=== PATIENT | male | born 1955 | race Caucasian/White ===

== ENCOUNTER 2024-05-11 05:01 | Observation (INO) ==
--- NOTE | 2024-03-29 08:49 | PAT Medication Instructions ---
Medication Instructions Date of Service March 29, 2024 Home Medications lisinopril 10 mg tablet 10 mg PO QPM Take evening before surgery lisinopril 10 mg tablet 10 mg PO QPM Other Notes NOTHING TO EAT OR DRINK AFTER MIDNIGHT. If you have any questions please call us at [phone] or [phone] or [phone] or [phone]
--- NOTE | 2024-04-05 11:53 | Anesthesiology Consultation ---
Date of Service April 05, 2024 Assessment & Plan (1) Encounter for pre-operative examination: - will request 12/[address] [facility] and most recent PCP office note. Chart Review Chart Review: Pending: Refer to Additional Notes / Consult section and Patient seen in Pre Admission Testing Teaching & Discussion Pre-Anesthesia Teaching/Discussion Notes: Instructed NPO after midnight before surgery, except medications with 15 cc of water. Medication instructions provided according to the PAT guidelines. History Surgery Operation Date: 05/11/24 08:00 Proposed Procedures p Left Anterior Total Hip Arthroplasty - Allan Palma DO Height/Weight Height: 5 ft 10 in Weight: 112.1 kg Allergies Allergy/AdvReac Type Severity Reaction Status Date / Time No Known Allergies Allergy Unverified 03/28/24 14:56 Medications Home Medications Medication Instructions Recorded Confirmed Last Taken lisinopril 10 mg tablet 10 mg PO QPM 03/28/24 03/28/24 Unknown ascorbic acid (vitamin C) 250 mg 250 mg PO QPM 04/05/24 04/05/24 Unknown tablet cholecalciferol (vitamin D3) 50 50 mcg PO QPM 04/05/24 04/05/24 Unknown mcg (2,000 unit) capsule (Vitamin D3) magnesium 100 mg tablet mg PO QPM 04/05/24 Unknown zinc 15 mg tablet 15 mg PO QPM 04/05/24 04/05/24 Unknown Additional Notes: Patient was instructed can continue supplements the evening before surgery, but cannot be taken the morning of surgery. This was also written on provided medication instructions. He verbalized understanding and agreement, denied questions, concerns or additional supplements/medications. Past Medical History Medical History (Updated 04/05/24 @ 12:21 by Neida Oakes PA-C) History of kidney stones History of prostate cancer (2003) prostatectomy, chemo and radiation Hypertension controlled, stable per pt Osteoarthritis Patient denies h/o stroke, seizures, heart attack, heart failure, DM, blood clots/DVTs or blood transfusions. Exercise / Class Metabolic Activity III < 4 Walking/Shop/Light housework (denies chest discomfort or shortness of breath with usual activities) Past Surgical History Surgical History History of amputation of finger of right hand History of prostatectomy History of repair of left rotator cuff Past Anesthesia History No Hx of Anesthesia Complications and No Family Hx of Anesthesia Complications History of PONV No Hx of PONV and No Hx of Motion Sickness Social History Smoking Status: Never smoker Do You Dip or Chew Tobacco: Yes (-advised) Hx Alcohol Use: No Hx Substance Use: No substance use type: does not use Review of Systems Snoring, denies witnessed apneas. Patient denies chest pain, shortness of breath, dyspnea on exertion, reflux, fever, chills, cough, wheezing, or palpitations. Physical Exam Vital Signs Vitals BP 113/68 P 60 TEMP 97.8 SP02 98% on RA RESP 18 Physical Patient resting comfortably in chair in no acute distress, alert and oriented, responding appropriately throughout visit Full cervical extension range of motion without pain TMD 3.5 finger breadths Mallampati Score 2 Dentition: front upper partial, denies chipped or loose teeth, caps/crowns, implants or bridges Lungs: normal respiratory effort. Good air movement, clear throughout to auscultation, no adventitious breath sounds Cardiac: regular rate and rhythm, no murmurs noted Carotid arteries: negative bruit bilat Lab Results Anesthesia Preop Results Results Anesthesia Widget: WBC 8.01 K/ul (4.8-10.8) 04/05/24 Hgb 14.5 g/dl (14.0-18.0) 04/05/24 Hct 44.2 % (42.0-52.0) 04/05/24 Plt 187 K/uL (130-400) 04/05/24 Na 142 mmol/L (136-145) 04/05/24 K 4.0 mmol/L (3.5-5.1) 04/05/24 Cl 107 mmol/L (98-107) 04/05/24 CO2 30 mmol/L (21-32) 04/05/24 BUN 19 mg/dl (6-23) 04/05/24 Creat 1.07 mg/dl (0.6-1.4) 04/05/24 Glucose Level 91 mg/dl (70-99(Fasting)) 04/05/24 PT 10.4 Seconds (9.0-12.0) 04/05/24 PTT 27 Seconds (21-31) 04/05/24 INR 1.0 (0.9-1.1) 04/05/24 Blood Type O Positive 04/05/24 Antibody Screen NEGATIVE 04/05/24 Testing Electrocardiogram Date: 04/05/24 Sinus bradycardia, rate 59 bpm Chest X-Ray Date: 04/05/24 No acute chest disease.
--- NOTE | 2024-05-09 07:44 | History & Physical Report ---
Date of Service May 09, 2024 Assessment & Plan (1) Osteoarthritis of left hip: We will proceed with a left anterior total of arthroplasty. Postoperatively he will be started on aspirin for DVT prophylaxis and kept overnight in the hospital for postop medical management. He plans to have the hospital set up home health for discharge. History of Present Illness Chief Complaint: Osteoarthritis of the left hip. Primary Care Provider: Santana Ozuna is a pleasant 68-year-old male who has been dealing with chronic increasing left hip and groin pain. X-rays and clinical examination have been diagnostic for advanced arthritis of the left hip. He has had injections of his hip, which initially were providing relief, but are no longer helping. MRI of the left hip confirms advanced arthritis. After failing conservative treatment, he has elected proceed with a left anterior total of arthroplasty. Allergies Allergy/AdvReac Type Severity Reaction Status Date / Time No Known Allergies Allergy Unverified 03/28/24 14:56 Home Medications Medication Instructions Recorded Confirmed Type lisinopril 10 mg tablet 10 mg PO QPM 03/28/24 03/28/24 History ascorbic acid (vitamin C) 250 mg 250 mg PO QPM 04/05/24 04/05/24 History tablet cholecalciferol (vitamin D3) 50 50 mcg PO QPM 04/05/24 04/05/24 History mcg (2,000 unit) capsule (Vitamin D3) magnesium 100 mg tablet mg PO QPM 04/05/24 History zinc 15 mg tablet 15 mg PO QPM 04/05/24 04/05/24 History Past Med/Surg History Problem List Osteoarthritis of left hip Osteoarthritis of right hip Greater trochanteric bursitis of right hip Carpal tunnel syndrome of left wrist Medical History Osteoarthritis History of kidney stones History of prostate cancer (2003) prostatectomy, chemo and radiation Hypertension controlled, stable per pt Surgical History History of amputation of finger of right hand History of repair of left rotator cuff History of prostatectomy Social History Smoking Status: Never smoker Tobacco Type: Smokeless Tobacco (Dip or Chew) Second Hand Exposure: No; Do You Dip or Chew Tobacco: Yes (-advised); Tobacco Cessation Education Requested by Patient: No Hx Alcohol Use: No Hx Substance Use: No Preferred Language: Turkmen Pet Walker Required: No Beliefs That Will Affect Care: None Current Living Situation: Spouse Other Information That Helps Us Care for You: No Feels Safe at Home: Yes Safety Concerns: Feels Safe At This Time Assistive Devices: Denture - Upper Review of Systems All systems reviewed & are unremarkable except as noted in HPI & below. Physical Exam On physical exam of the left hip, he has decreased range of motion. He has pain with internal/external rotation. All of his pain is located in the groin.. Constitutional WD/WN, vitals as above Eyes PERRL, conjunctivae normal, anicteric sclerae ENMT external ear and nose normal, oropharynx normal Neck trachea midline, no thyromegaly Respiratory normal respiratory effort Cardiovascular RRR, no murmur, no edema Gastrointestinal (Abdomen) normal bowel sounds, soft, nontender, no hepatosplenomegaly Psychiatric A+Ox3, euthymic affect Results & Data Results & Data Laboratory Results . Diagnostic Findings X-rays of the left hip show advanced osteoarthritis with joint space narrowing, osteophyte formation, and [id number] articulation. PG Care Time/CCT Total # of Minutes Spent Total Time Spent with Patient: Total time spent is greater than 50% in coordination of care (as documented) at patient's floor/unit and/or counseling patient: Coding Level of Care Code None Diagnoses Osteoarthritis of left hip M16.12
[2024-05-11] MEDS: LR 60ML/HR IV SCH (05:33)
[2024-05-11] MEDS: FAMOTIDINE 20 MG TAB PO SCH (05:42)
[2024-05-11] MEDS: GABAPENTIN 300 MG CAP PO SCH (05:42)
[2024-05-11] MEDS: ACETAMINOPHEN 500 MG TAB PO SCH ×2 (05:42→14:33)
[2024-05-11] MEDS: LR 15ML/HR IV SCH (05:42)
[2024-05-11] MEDS: dexAMETHasone**PF** 10 MG/ML VIAL IV SCH (05:43)
--- NOTE | 2024-05-11 06:16 | History & Physical Bridge Note ---
Date of Service May 11, 2024 History & Physical Bridge Note I have examined the patient, reviewed the History & Physical and in the interval since the performance of the History & Physical I have noted the following changes of clinical significance: no changes noted
[2024-05-11] MEDS ORDERED: BUPIVACAINE 0.5 % 5 MG/1 ML PF 10ML VIAL ONE (06:17)
[2024-05-11] MEDS: TRANEXAMIC ACID 1,000 MG **IV Pre-op IV SCH (06:46)
[2024-05-11] MEDS ORDERED: MIDAZOLAM HCL 1 MG/ML 2ML VIAL ONE (06:47)
[2024-05-11] MEDS ORDERED: HYDROmorphone INJ 1 MG/ML SYRINGE IV PRN (07:10)
[2024-05-11] MEDS ORDERED: ONDANSETRON INJ 2 MG/ML 2 ML VIAL IV PRN ×2 (07:10→11:16)
[2024-05-11] MEDS: ceFAZolin 2000MG 2,000 MG/15 ML SYR IV SCH ×2 (07:10→14:34)
[2024-05-11] MEDS ORDERED: ePHEDrine sulfate 50 MG/ML AMP IV PRN (07:10)
[2024-05-11] MEDS ORDERED: PROMETHAZINE HCL 6.25 MG in SODIUM CHLORIDE 0.9% 50 ML IV PRN (07:10)
[2024-05-11] MEDS ORDERED: fentaNYL citrate PF 100 MCG/2 ML VIAL IV PRN (07:10)
[2024-05-11] MEDS ORDERED: ATROPINE SULFATE 0.1 MG/ML 10ML SYR IV PRN (07:10)
[2024-05-11] MEDS ORDERED: GLYCOPYRROLATE 0.2 MG/ML VIAL ONE (07:36)
[2024-05-11] MEDS: ORTHO JOINT ANESTHETIC ONE (07:49)
[2024-05-11] MEDS ORDERED: PROPOFOL IV EMULSION 10 MG/ML 20 ML VIAL IV ONE (07:52)
[2024-05-11] MEDS: ROPIV 0.5% 246mg, Ketorolac 30mg, EPINEPHrine 0.5mg in NSS INFIL SCH (08:02)
--- NOTE | 2024-05-11 08:08 | Operative Report ---
PG Post Operative Report Pre & Post Diagnosis Operation Date: 05/11/24 07:00 Pre-Op Diagnosis: Osteoarthritis of left hip Post-Op Diagnosis: Osteoarthritis of left hip I identified the patient and participated in the time-out.: Yes Procedure Operation Date: 05/11/24 07:00 Actual Procedures p Left Anterior Total Hip Arthroplasty(Left) - Allan Palma DO Surgeon Allan Palma DO Supervisor [employer] Lino Aguilar PA-C Estimated Blood Loss 250 Findings Consistent with Post-Op Diagnosis Specimens Left femoral head Description of Procedure Implants used I used a ZimmerBiomet total hip arthroplasty system with a size 4 standard offset Avenir Complete stem, a 54 mm G7 cup with a 25mm screw, an E1 polyethylene liner, a 40 mm ceramic head with a 0 neck. Laith arrived at the hospital for the above procedure. He was seen in the preoperative holding area and the operative extremity was identified and signed. He was given a spinal anesthetic, a preoperative antibiotic, and TXA. He was then taken back to the operating room and laid on the table in the supine position. He was given basic sedation. The operative leg was secured to a Puristst leg positioner. The hip was then prepped and draped in sterile fashion. A timeout was done and the patient and the operative extremity was properly identified. An anterior approach was used. Dissection was taken down through the fascia and the tensor muscle belly was retracted laterally and the rectus was retracted medially. The circumflex vessels were identified and ligated. The capsule was then incised and tagged for later repair. The femoral neck was then cut and the femoral head was removed. The acetabulum was exposed. Time was spent doing a complete circumferential labral release. Sequential reaming of the acetabulum up to a size 53 reamer was done. Final reamings were done under fluoroscopy to ensure appropriate version. A Biomet 54 mm G7 cup was then impacted into place. A single 25 mm screw was placed. The E1 polyethylene liner was then snapped into place. Surrounding soft tissues were then injected with 100 cc of an orthopedic pain control cocktail. The proximal femur was then exposed. Sequential broaching up to a size 4 broach was done. Off that broach a size 40 head with a 0 neck was trialed. The hip was reduced and fluoroscopic images showed anatomic alignment of the implants in acceptable length. The broach was removed. The final size 4 standard offset Avenir Complete stem was then impacted into place. A ceramic 40 mm head with a 0 neck was then impacted onto the stem and the hip was reduced. Final fluoroscopic images showed anatomic alignment of the hip. The capsule was then closed with #1 Vicryl suture. A dilute betadyne lavage was then done for 3 minutes. The joint was then irrigated with normal saline solution. The fascia was closed with #1 PDS suture. Skin was closed with 2-0 Vicryl, delano, and a Silverlon dressing. He was then transferred to a hospital bed and taken to the post anesthesia care unit in stable condition. He tolerated the procedure well. Lino Aguilar PA-C, was present for the entire procedure. He was critical for patient positioning, prepping, draping, retraction exposure, wound closure and application of sterile dressing. I attest to the content of the Intraoperative Record and any orders documented therein. Any exceptions are noted below.
[2024-05-11] MEDS: TRANEXAMIC ACID 1,000 MG **IV Intra-op IV SCH (08:10)
--- NOTE | 2024-05-11 08:30 | Fluoroscopy Report ---
FL hip LT 1V CLINICAL HISTORY: LT ANTERIOR TYLER COMPARISON STUDY: Left hip radiographs February 15, 2024. FLUOROSCOPY TIME: 10 seconds. Ka,r: 1.5916 mGy FLUOROSCOPIC IMAGES: 1 FINDINGS: Fluoroscopy was provided during total anterior left hip arthroplasty. Alignment is anatomic . There are no fractures. No unexpected radiopaque foreign bodies. IMPRESSION: Expected findings following total left hip arthroplasty. ACT 112: Negative or not required by law. Electronically signed by: Kwame Duran M.D. 05/11/2024 8:29 AM
--- NOTE | 2024-05-11 09:10 | XRay Report ---
XR hip 1V LT w pelvis HISTORY: 68 years-old Male IN PACU - Post Surgical COMPARISON: Fluoroscopic images 07/11/2023 TECHNIQUE: AP view of the pelvis with crosstable lateral view of left hip FINDINGS: Moderate osteoarthritis of the right hip. Left hip arthroplasty with adjacent expected postoperative soft tissue swelling, lateral skin delano and deep tissue air. IMPRESSION: Left hip arthroplasty with expected postoperative changes. ACT 112: Negative or not required by law. The above report was generated using voice recognition software. It may contain grammatical, syntax o r spelling errors. Electronically signed by: Ryland Conrad M.D. 05/11/2024 9:08 AM
[2024-05-11] MEDS ORDERED: oxyCODONE HCL IR 5 MG TAB (IMMEDIATE RELEASE) PO PRN (11:16)
[2024-05-11] MEDS ORDERED: NALOXONE HCL 0.4 MG/1 ML VIAL/CARP IV PRN (11:16)
[2024-05-11] MEDS ORDERED: HYDROmorphone INJ 0.5 MG/0.5 ML SYR IV PRN (11:16)
[2024-05-11] MEDS ORDERED: MAGNESIUM HYDROXIDE SUSP 30 ML UDC PO PRN (11:16)
[2024-05-11] MEDS: KETOROLAC TROMETHAMINE 15 MG/ML VIAL IV SCH (12:00)
[2024-05-11] MEDS: DOCUSATE SODIUM 100 MG CAP PO SCH (12:00)
--- NOTE | 2024-05-11 14:44 | Anesthesiology Progress Note ---
Date of Service May 11, 2024 Anesthesia Post Procedure Vital Signs Vital Signs: Temp Pulse Pulse Resp BP Pulse Ox O2 Del Method 05/11/24 14:31 78 18 140/82 97 Room Air 05/11/24 13:31 73 16 165/73 H 98 Room Air 05/11/24 11:55 36.5 C 53 L 18 156/85 H 96 Room Air 05/11/24 11:25 36.8 C 65 18 172/97 H 98 Room Air 05/11/24 10:55 36.5 C 72 16 148/87 H 97 Room Air 05/11/24 10:30 36.4 C L 70 14 147/92 H 96 Room Air 05/11/24 10:15 50 L 12 135/51 L 96 Room Air 05/11/24 10:00 75 20 130/75 96 Room Air 05/11/24 09:50 60 12 154/76 H 95 Room Air 05/11/24 09:40 56 L 14 117/89 98 Room Air 05/11/24 09:30 51 L 12 125/74 97 Room Air 05/11/24 09:20 59 L 12 118/85 98 Room Air 05/11/24 09:10 67 12 125/76 99 Oxymask 05/11/24 09:00 70 12 137/78 99 Oxymask 05/11/24 08:50 69 12 133/76 100 Oxymask 05/11/24 08:40 68 12 130/75 100 Oxymask 05/11/24 08:32 36.0 C L 73 12 122/70 97 Oxymask 05/11/24 05:25 36.9 C 57 L 18 146/85 H 96 Room Air O2 Flow Rate 05/11/24 14:31 05/11/24 13:31 05/11/24 11:55 05/11/24 11:25 05/11/24 10:55 05/11/24 10:30 05/11/24 10:15 05/11/24 10:00 05/11/24 09:50 05/11/24 09:40 05/11/24 09:30 05/11/24 09:20 05/11/24 09:10 2 05/11/24 09:00 4 05/11/24 08:50 4 05/11/24 08:40 4 05/11/24 08:32 6 05/11/24 05:25 Pain Intensity Left Hip: Pain Intensity: 4 Transfer of Care Handoff Completed per policy Notes Mental Status: alert / awake / arousable and participated in evaluation Patient Amnestic to Procedure: Yes Nausea / Vomiting: adequately controlled Pain: adequately controlled Airway Patency, RR, SpO2: stable & adequate BP & HR: stable & adequate Hydration State: stable & adequate Neuraxial Anesthesia: was administered and sensory block is resolving Anesthetic Complications: no major complications apparent and Pt Satisfied with anesthetic care
[2024-05-11] MEDS: MAGNESIUM OXIDE 400 MG TAB PO SCH (19:55)
[2024-05-11] MEDS: CHOLECALCIFEROL 25 MCG (1000 UNITS) TAB PO SCH (19:55)
[2024-05-11] MEDS: lisinopril 10 MG TAB PO SCH (19:55)
[2024-05-11] MEDS: ASCORBIC ACID 500 MG TAB PO SCH (19:55)
[2024-05-11] MEDS ORDERED: NON-FORMULARY MEDICATION (Zinc 15 mg Tablet) PO SCH (21:00)
[2024-05-11 23:48] VITALS: RESP 14
[2024-05-12 07:49] VITALS: TEMP 97.7; O2SAT 95
[2024-05-12 07:53] VITALS: BP 113/67; PULSE 62
[2024-05-12] MEDS: ASPIRIN 81 MG ECTAB PO SCH (08:17)
[2024-05-12] MEDS: dexAMETHasone 4 MG TAB PO SCH (08:17)
--- NOTE | 2024-05-12 09:20 | Orthopedic Progress Note ---
Date of Service May 12, 2024 Assessment & Plan (1) Status post left hip replacement: Overall he is doing very well. He is not having much pain in the left hip. He will be seen by physical therapy today for ambulation and range of motion exercises. The dressing can be changed with another Silverlon dressing today. He is on aspirin for DVT prophylaxis. He can be discharged home later today. He will follow-up with orthopedics in 2 weeks. Flaquita Ozuna was seen and examined at bedside this morning. Overall is doing fairly well. He is not having too much pain in the left hip. He has been up and ambulating. He has no complaints.. Review of Systems All systems reviewed & are unremarkable except as noted in HPI & below. Physical Exam On physical examination of the left hip, the dressing bled through some last night and has been reinforced. His leg is out full extension. He has some numbness around his thigh but he has full motor function.. Results & Data Results & Data Laboratory Results . Diagnostic Findings Postoperative x-rays of the left hip show the prosthesis to be in anatomic alignment without any evidence of fracture, his cage, or loosening.. PG Care Time/CCT Total # of Minutes Spent Total Time Spent with Patient: Total time spent is greater than 50% in coordination of care (as documented) at patient's floor/unit and/or counseling patient: Coding Level of Care Code 99890 Post Operative Follow-Up Diagnoses Status post left hip replacement Z96.642
--- NOTE | 2024-05-12 09:21 | Discharge Summary ---
Date of Service May 12, 2024 Admission HPI (Per Admitting) Laith is a pleasant 68-year-old male who has been dealing with chronic increasing left hip and groin pain. X-rays and clinical examination have been diagnostic for advanced arthritis of the left hip. He has had injections of his hip, which initially were providing relief, but are no longer helping. MRI of the left hip confirms advanced arthritis. After failing conservative treatment, he has elected proceed with a left anterior total of arthroplasty. Admission Exam (Per Admitting) On physical exam of the left hip, he has decreased range of motion. He has pain with internal/external rotation. All of his pain is located in the groin.. Principal Diagnosis Same as "Discharge Diagnosis" noted below under Discharge Instructions. Discharge Exam On physical examination of the left hip, the dressing bled through some last night and has been reinforced. His leg is out full extension. He has some numbness around his thigh but he has full motor function.. Discharge Data Procedures Performed Operation Date: 05/11/24 07:00 Actual Procedures p Left Anterior Total Hip Arthroplasty(Left) - Allan Palma DO Ordered Studies 05/11/24 07:00 FL hip LT 1V Routine Hospital Course (1) Status post left hip replacement: On May 11, 2024 Laith arrived at [facility] and underwent a left hip replacement without complication. He had a spinal anesthetic. Postoperatively he was started on aspirin for DVT prophylaxis and transferred to the general orthopedic floors. His hospital course was uneventful. On postop day #1, his vital signs were stable and his pain was well-controlled. He was able to participate well with physical therapy doing ambulation and range of motion exercises. He was then discharged to home. He will follow-up orthopedics in 2 weeks. PG Care Time/CCT Total # of Minutes Spent Total Time Spent with Patient: Total time spent is greater than 50% in coordination of care (as documented) at patient's floor/unit and/or counseling patient: Discharge Plan Discharge Items Patient Disposition: Home - Self-Care Reason For Visit: POST SURGICAL CARE Discharge Diagnosis: Left hip replacement Activity: Per Instructions section Non-emergency contact: Surgeon Call non-emergency contact if: your wound has increased redness and your wound has increased drainage Follow-up/Referrals: Santana Cook D.O. [Primary Care Provider] - Diet: Regular Addtl Attending Provider Instructions: Activity and Therapy Recommendations: * If you are using [facility] then therapy will be provided at your home until they feel you have accomplished all of your goals. * If you are using [facility] then Physical Therapy will be provided until they feel you are ready to start Outpatient Physical Therapy. * If you are not using home therapy then Outpatient Physical Therapy should start about 3-5 days from your day of surgery. Therapy will last about 6-10 weeks * You were shown a series of exercises in the hospital. Do these exercises three times each day including the exercises you were shown in physical therapy. * Get up and walk several times each day.~ For the first four weeks, try not to stand or walk for more than one hour at a time. If you do stand or walk for more than one hour, you will not hurt anything, but your leg will likely swell.~~ * As you feel comfortable, you may change from the walker or crutches to a cane and~then to independent walking. Medications: * Narcotic You will likely be sent home from the hospital with a prescription for the narcotic pain medication that worked best throughout your stay. * Cefadroxil -take the antibiotic twice a day for 10 days to help prevent infection. * Aspirin Most patients will be required to take Aspirin 81mg twice a day for 6 weeks after surgery. This is obtained [id number] and a prescription is not necessary. * Other medications may be prescribed for specific circumstances. If you have any questions, please call the office at . * Resume previous home medications unless otherwise instructed TEDs/Elastic Stockings: The white elastic stockings help limit swelling and prevent blood clots from forming in your legs. The more you wear them, the more they work. Wear them for six weeks. Dressing Care: Leave the Silverlon dressing in place for 7 days. After 7 days you may remove the dressing. If the incision is not draining then you may leave the delano open to air. If there is a little bit of drainage or if the delano are getting stuck on your clothing then cover the incision with a dry dressing. The delano will be removed at your 2 week follow-up appointment. Showering: You may shower with the Silverlon dressing in place. Do not let the shower spray hit the dressing directly. Pat the Silverlon dressing dry. If the dressing becomes wet underneath, then simply remove the dressing. Keep the incision dry until you are 7 days out from the day of surgery. After 7 days you may remove the Silverlon dressing and shower with the delano exposed. Let soapy water run over the delano and pat them dry. Do not scrub or soak the incision. Diet: You may resume your previous diet. Things To Watch For: * Drainage from the incision site that occurs more than one week after your surgery. * Increased redness at the incision site. * Fever above 102 degrees Fahrenheit. * Unusual chest pain or shortness of breath. * Call [facility] at with any of the above problems Follow-Up Visit: Follow-up with Dr. Palma's office 2-3 weeks after your day of surgery. We will remove your delano and answer any questions. If you have any additional questions or concerns, Dr Palma is usually in the office at the same time and will be available An appointment was probably scheduled when you signed-up for surgery in the office. If you have any questions call Office Instructions: More detailed instructions as well as Frequently Asked Questions were provided in a folder by our office when you signed-up for surgery. Please review these instructions when you get home. If you have any further questions or concerns, please feel free to call the office at [phone] Pending Studies at Discharge: No Stand-Alone Forms: My [facility], Smoking Cessation Medications and DC Order Prescriptions: New oxycodone 5 mg Tablet 5 mg PO Q4H PRN (Reason: pain) Qty: 30 0RF cefadroxil 500 mg capsule 500 mg PO BID 10 Days Qty: 20 0RF aspirin 81 mg Tablet,Delayed Release (Dr/Ec) 81 mg PO BID 42 Days Qty: 84 0RF Continued lisinopril 10 mg Tablet 10 mg PO QPM zinc 15 mg Tablet 15 mg PO QPM ascorbic acid (vitamin C) 250 mg Tablet 250 mg PO QPM cholecalciferol (vitamin D3) [Vitamin D3] 50 mcg (2,000 unit) Capsule 50 mcg PO QPM magnesium 100 mg Tablet 100 mg PO QPM Discharge Orders: Discharge Order (Routine); Ordered 05/12/24 Ordered By: Allan Palma Admission Data Admit Date/Time: 05/11/24 08:38 Attending Provider: Allan Palma Admit Provider: Allan Palma Primary Care Provider: Santana Cook
== END 2024-05-12 11:24 | disposition home health service (06) ==
LOC: 3N 05:01 → ASU 05:01